=== PATIENT | male | born 1945 | race Hispanic/Latino ===

== ENCOUNTER 2019-02-08 17:37 | Inpatient (IN) | payer OTHER | END 2019-02-10 12:31 | disposition home or self-care (01) | LOC: EDH 17:37 → EDHIP 21:08 → 4BH 22:11 | DX: R50.9 Fever, unspecified (principal); Z85.07 Personal history of malignant neoplasm of pancreas ==

== ENCOUNTER → 2019-06-02 | Outpatient (CLI) | payer OTHER ==
[~2019-06-02] MED LIST: ACET1TAB25 PO; ATOR10TA69 PO; CREON12 PO; ERGO500014 PO; GABA-529 PO; INSU100I15 SQ; INSU100I24 SQ; LISI10TA7 PO; METF-444 PO; ONDA8TAB12 PO; PROC10TA13 PO; TEMA30CA PO
== END | disposition home or self-care (01) ==
LOC: RAH 14:04
PROVIDERS: ATTEND Urology
DX: N13.2 Hydronephrosis with renal and ureteral calculous obstruction (principal); K43.9 Ventral hernia without obstruction or gangrene; K40.90 Unilateral inguinal hernia, without obstruction or gangrene, not specified as recurrent
CPT/HCPCS: 74176

== ENCOUNTER → 2019-11-30 | Outpatient (CLI) | payer OTHER | END | disposition home or self-care (01) | LOC: RAH 12:52 | PROVIDERS: ATTEND Urology | DX: N28.1 Cyst of kidney, acquired (principal); N20.0 Calculus of kidney | CPT/HCPCS: 76770 ==

== ENCOUNTER → 2019-12-04 | Outpatient (CLI) | payer OTHER ==
[~2019-12-04] MED LIST changes: +FUROSEMIDE 10 MG/ML 2ML VIAL ONE
== END | disposition home or self-care (01) ==
LOC: RAH 13:30
PROVIDERS: ATTEND Urology
DX: N20.0 Calculus of kidney (principal)
CPT/HCPCS: 78708; J1940; A9562